=== PATIENT | female | born 1955 | race Caucasian/White ===

== ENCOUNTER 2016-06-09 09:34 | Emergency (ER) | payer OTHER, MEDICAID ==
[2016-06-09 09:44] VITALS: BP 85/40; BMI 54.8
--- NOTE | 2016-06-09 10:22 | DR.GENAD ---
HPI - PCP Primary Care Physician: LEANN - HPI Comment HPI Comment: LOWER EXTREMITY EDEMA, SOB AND WEAKNESS. LEFT HOSPITAL FEW DAYS AGO FOR SAME PROBLEM BEFORE DISCHARGE. CONTINUE WITH INCREASING EDEMA. WORSE TODAY. LOWER EXTREMITIES HURTING. - Complaint/Symptoms Chief Complaint Doctors Comments: EDEMA LOWER EXTREMITIES AND SOB FOR SEVERAL DAYS. ON HOME OXYGEN. Chief Complaint:: PT. C/O BILATERAL LOWER LEG EDEMA. DAUGHTER STATES THEY CALLED DR. NORIEGA'S OFFICE AND THEY TOLD HER TO COME TO THE ER SO SHE COULD GET SOME IV LASIX. 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, CHRONIC BACK PAIN, DDD, ACUTE KIDNEY DISEASE Past Surgical History: Yes Surgical History: Hysterectomy, Other Past Surgical History Comment: BACK SURGERY - Family History History of Family Medical Conditions: Yes Family Medical History: Diabetes Mellitus, Cancer - Social History Does patient currently use any type of tobacco product: Yes Have you used tobacco products in the last 12 months: Yes Type of Tobacco Use: Cigarettes How many years tobacco product used: 48 Does any household member use tobacco: Yes Alcohol Use: None Do you use any recreational Drugs:: No Lives With: Family Lives Where: Home - infectious screening In the last 2 months have you had wt loss of >10#?: NO Have you had fever, night sweats or hemotysis?: No Have you traveled outside the country in the last 6 months?: No Isolation: Standard ROS - Review of Systems Constitutional: Weakness, Fatigue Eyes: No Symptoms Reported. negative: Eye Pain, Discharge ENTM: No Symptoms Reported. negative: Ear Pain, Nose Discharge, Nose Congestion , Throat Pain Respiratoy: Productive Cough (CLEAR SPUTUM.), Short of Breath, Wheezing Cardiovascular: Chest Pain (TIGHTNESS), Edema Genitourinary: Other (INCREASE URINE OUT PUT DUE TO LASIX.) Neurological: Problems Walking (CHRONIC) Musculoskeletal: Back Pain, Leg, Ankle, Foot Integumentary: Change in Color, Other (EDEMA) Hematologic/Lymphatic: Easy Bruising Endocrine: Increased Thirst, Increased Urine All Other Systems: Reviewed and Negative PE - Vital Signs Vitals: Temperature 98.9 F Pulse Rate 62 Respiratory Rate 18 Blood Pressure 85/40 O2 Sat by Pulse Oximetry 92 - General Limitations: No Limitations General Appearance: Alert, In Distress - Head Head Exam: Normal Inspection - Eyes Eye exam: Normal Appearance - ENT ENT Exam: Normal External Ear Exam External Ear Exam: Normal External Inspection TM/Canal Exam: Bilateral Normal Nose Exam: Normal Nose Exam Mouth Exam: Normal Inspection Throat Exam: Normal Inspection - Neck Neck Exam: Normal Inspection - Chest Chest Inspection: Symmetric Chest Wall Rise - Respiratory Respiratory Exam: Respiratory Distress Respiratory Exam: Bilateral Wheezing, Bilateral Rhonchi, Upper Wheezing, Upper Rhonchi, Lower Wheezing, Lower Rhonchi - Cardiovascular Cardiovascular Exam: Regular Rate, Normal Rhythm, Normal Heart Sounds - Abdominal Exam Abdominal Exam: Normal Bowel Sounds, Soft. negative: Tenderness - Extremities Extremities Exam: Edema (3 PLUS LOWER EXTREMITY EDEMA) - Back Back Exam: Paraspinal Tenderness - Neurologic Neurological Exam: Alert, Oriented X3 - Psychiatric Psychiatric Exam: Normal Affect, Normal Mood - Skin Skin Exam: Erythema MDM - Differential Diagnosis Differential Diagnosis: CHF, UT, RESPIRATORY DISTRESS COPD, PNEUMONIA, PE. Course - Treatment Treatment: PATIENT DO NOT WISH TO HAVE LABS OR XRAY DONE. SHE WILL GO TO [facility] AND CONTINUE HER PREVIOUS MANAGEMENT WITHOUT EVALUATING HER ALL OVER AGAIN. SHE WAS DISCHARGE AMA, - Diagnosis Discharge Problem: Edema Qualifiers: Edema type: generalized Qualified Code(s): R60.1 - Generalized edema CHF (congestive heart failure) Qualifiers: Congestive heart failure type: combined - Discharge Plan Disposition: AGAINST MEDICAL ADVICE Condition: Stable - Follow ups/Referrals Follow ups/Referrals: RODRIGUE NORIEGA [Primary Care Provider] - 3 days - Instructions
== END 2016-06-09 10:24 | disposition left against medical advice (07) ==
LOC: ER 09:57
DX: I50.9 Heart failure, unspecified (principal); R60.1 Generalized edema
CPT/HCPCS: 99281; 99283